=== PATIENT | female | born 1970 | race Caucasian/White ===

== ENCOUNTER → 2016-04-03 | Outpatient (CLI) | payer BC ==
--- NOTE | 2016-04-04 08:47 | KCIC ---
PROCEDURE MRI lumbar spine without contrast. HISTORY Lumbago with sciatica, chronic low back pain getting worse, painful to bend, left leg numbness TECHNIQUE Sagittal and axial T1 and T2 and sagittal STIR images were acquired of the lumbar spine. Contrast: None COMPARISON None FINDINGS There is mild motion. Lumbar vertebral body stature is adequate. Conus terminates at the inferior aspect of L1. There is hemangioma of the L2 vertebral body, degenerative endplate change of the anterior superior corner of L2. There is moderate to severe degenerative disc disease at L5-S1, associated degenerative endplate change, also mild amorphous endplate edema. There is mild degenerative disc disease at L4-5 and mild disc desiccation L3-4 and L2-3. There is negligible posterior subluxation L4 relative to L5 and L3 relative to L4. There is mild lumbar levoscoliosis. T12-L1: Spinal canal and neural foramina are adequate. L1-L2: Neural foramina and spinal canal are adequate. L2-L3: There is negligible disc osteophyte complex. Spinal canal and neural foramina are adequate. L3-L4: There is negligible disc osteophyte complex and bulge. There is left posterolateral annular tear. Neural foramina and spinal canal are adequate. There is mild facet degenerative change and buckling of the ligamentum flavum. L4-5: There is mild facet hypertrophic change and buckling of the ligamentum flavum. There is minimal disc osteophyte complex and bulge. Neural foramina are adequate. Spinal canal is overall adequate. L5-S1: There is minimal disc osteophyte complex and shallow bulge/protrusion. There is contact of the descending right S1 nerve root, near descending left S1 nerve root. There is mild to moderate right and mild left lateral recess stenosis. There is mild facet degenerative change. There is mild neural foramina compromise bilaterally. IMPRESSION 1. There is moderate to severe degenerative disc disease at L5-S1, minimally at L4-5. 2. There is mild to moderate right and mild left lateral recess stenosis at L5-S1 with contact of the descending right S1 nerve root, near descending left S1 nerve root. There is mild neural foramina compromise bilaterally at L5-S1. 3. There is multilevel facet degenerative change, mild abnormal alignment as stated. Electronically signed by: Gerardo Harrington MD (Apr 04, 2016 08:46:30)
== END | disposition home or self-care (01) ==
LOC: KCIC MRI 16:38
DX: M54.42 Lumbago with sciatica, left side (principal); D18.09 Hemangioma of other sites; M51.37 Other intervertebral disc degeneration, lumbosacral region; M25.78 Osteophyte, vertebrae; M48.06 Spinal stenosis, lumbar region; M51.36 Other intervertebral disc degeneration, lumbar region
CPT/HCPCS: 72148